=== PATIENT | male | born 1990 | race Caucasian/White ===

== ENCOUNTER 2021-03-15 13:24 | Emergency (ER) | payer OTHER, SELFPAY ==
[2021-03-15 13:47] VITALS: BP 142/92; PULSE 104; RESP 14; TEMP 36.7; O2SAT 100
[2021-03-15 15:25] VITALS: BP 136/72; PULSE 98; RESP 18; TEMP 36.7; O2SAT 99
[2021-03-15 18:27] VITALS: BP 142/78; PULSE 80; RESP 20; O2SAT 99
--- NOTE | 2021-03-15 18:28 | ED.GENADULT ---
HPI - General Adult General Chief complaint: Wound/Laceration Stated complaint: cyst Time Seen by Provider: 03/15/21 15:57 Source: patient Mode of arrival: ambulatory Limitations: no limitations History of Present Illness HPI narrative: Patient presents with chief complaint of abscess to the left inner thigh over the past 4 days. Patient reports that he felt some slight leaking while in the waiting room. He denies any fever chills or signs of systemic infection. Patient denies having diabetes but reports hypertension and anxiety. Related Data Allergies Allergy/AdvReac Type Severity Reaction Status Date / Time dicyclomine [From Bentyl] Allergy Nausea and Verified 03/15/21 15:30 Vomiting duloxetine [From Cymbalta] AdvReac Other Verified 03/15/21 15:29 Review of Systems Review of Systems: CONSTITUTIONAL: Denies fever, chills, or sweats. EYES: Denies visual changes, redness, or discharge. ENT: Denies rhinorrhea, congestion, sore throat, or otalgia. CARDIOVASCULAR: Denies chest pain, palpitations, or edema. RESPIRATORY: Denies cough or dyspnea. GASTROINTESTINAL: Denies abdominal pain, nausea, vomiting, or diarrhea. GENITOURINARY: Denies dysuria or hematuria. SKIN: Reports abscess denies rash or itching. MUSCULOSKELETAL: Denies back pain, joint pain, or myalgia. NEUROLOGIC: Denies headache, numbness, dizziness, or weakness. PSYCHIATRIC: Denies anxiety or depression. Exam Narrative: GENERAL: Well-appearing, well-nourished, and in no acute distress. HEAD: Normocephalic, atraumatic. EYES: PERRLA and EOMI. CHEST: Clear to auscultation. No respiratory distress. No wheezes rales or rhonchi HEART: Regular rate and rhythm. No murmur heard. Normal peripheral pulses. EXTREMITIES: Normal range of motion. No edema. SKIN: Approximately 3 cm in circumference abscess to the left inner thigh. Fluctuance palpable. warm, dry, no rash. NEURO: No focal deficits. Alert and oriented x3. PSYCH: Normal mood and affect. Course Vital Signs Vital signs: Vital Signs Temperature 98.1 F 03/15/21 13:47 Pulse Rate 104 H 03/15/21 13:47 Respiratory Rate 14 03/15/21 13:47 Blood Pressure 142/92 H 03/15/21 13:47 Pulse Oximetry 100 03/15/21 13:47 Temperature 98.1 F 03/15/21 15:25 Pulse Rate 98 03/15/21 15:25 Respiratory Rate 18 03/15/21 15:25 Blood Pressure 136/72 03/15/21 15:25 Pulse Oximetry 99 03/15/21 15:25 Procedures Abscess I/D lower extremity: Side (if applicable): left Local Anesthetic: lidocaine 1% Amount of anesthesia used (mL): 3 Irrigation: Yes Packing used?: iodoform I&D Results: Pus Abcess I&D Additional Comments: Wound care instructions given. Culture taken Medical Decision Making MDM Narrative Medical decision making narrative: Discussed the need to follow-up primary care in a few days for reevaluation Discussed wound care instructions and the need to remove packing in 48 hours. Patient tolerated procedure well. Discussed return ER instructions if any worsening signs of infection present. Patient and his verbalized understanding agreement and denies any other needs or concerns. Vital Signs Vital Signs: Vital Signs Temperature 98.1 F 03/15/21 13:47 Pulse Rate 104 H 03/15/21 13:47 Respiratory Rate 14 03/15/21 13:47 Blood Pressure 142/92 H 03/15/21 13:47 Pulse Oximetry 100 03/15/21 13:47 Temperature 98.1 F 03/15/21 15:25 Pulse Rate 98 03/15/21 15:25 Respiratory Rate 18 03/15/21 15:25 Blood Pressure 136/72 03/15/21 15:25 Pulse Oximetry 99 03/15/21 15:25 Discharge Plan Discharge Clinical Impression: Abscess Patient Disposition: Home, Self-Care Condition: Improved Instructions: Antibiotic Form, Abscess (ED) Additional Instructions: Take Bactrim as instructed. Remove all of packing in 48 hours. Tylenol or ibuprofen for discomfort. Take tramadol as directed as needed for breakthrough pain.
== END 2021-03-15 18:29 | disposition home or self-care (01) ==
PROVIDERS: Emergency Provider Emergency Medicine; PCP Family Medicine
DX: L02.416 Cutaneous abscess of left lower limb (principal)
CPT/HCPCS: 10061; 99283

== ENCOUNTER 2021-10-09 17:18 | Emergency (ER) | payer OTHER, SELFPAY ==
--- NOTE | ~2021-10-09 | CT_ITS ---
EXAMINATION: CT abdomen pelvis w con DATE: 10/09/2021 19:17 INDICATION: right lower abdominal pain TECHNIQUE: Computed tomography (CT) of the abdomen and pelvis was performed with 100 mL Omnipaque-300 intravenous contrast. Automated exposure control and iterative reconstruction technique were employe d. The dose-length product was 1582.80 mGy-cm. COMPARISON: None FINDINGS: Lower thorax: Unremarkable Liver: Normal. Biliary/Gallbladder: Gallbladder is normal. No bile duct dilation. Pancreas: No mass or duct dilation. Spleen: Normal. Adrenals:No mass. Kidneys: No mass, stone, or hydronephrosis. GI tract: No small or large bowel dilation. Normal appendix. Diverticulosis without diverticulitis. Mesentery/Peritoneum: No ascites, mass, or free air. Enlarged lymph nodes in the jose francisco hepatis. Retroperitoneum: No mass. Pelvis: Pelvic organs are within normal limits. Soft Tissues: Bilateral inguinal lymphadenopathy. Tissues and body wall unremarkable. Bones: No acute osseous finding. IMPRESSION: Jose Francisco hepatic and bilateral inguinal lymphadenopathy. No other acute abdominopelvic process detected. Reviewed, dictated and finalized at location K. IMPRESSION: Jose Francisco hepatic and bilateral inguinal lymphadenopathy. No other acute abdominope lvic process detected.
[2021-10-09 17:20] VITALS: BP 129/95; PULSE 76; RESP 18; TEMP 36.3; O2SAT 98
--- NOTE | 2021-10-09 17:40 | ED.ABDPAIN ---
HPI - Abdominal Pain General Chief Complaint: Abdominal Pain Stated Complaint: abd pain Time Seen by Provider: 10/09/21 17:25 Source: patient Mode of arrival: ambulatory Limitations: no limitations History of Present Illness HPI narrative: 31 year old male presents today with complaints of intermittent right lower abdominal pain that started on Monday. Patient states the pain waivers in intensity. Currently rating pain 3/10. Patient denies history of kidney stones, abdominal surgery. He does endorse chills and sweats, trouble urinating at times but denies fever, decreased oral intake, dysuria, urinary frequency or back pain. Last BM was prior to arrival and he states was normal for him. Related Data Allergies Allergy/AdvReac Type Severity Reaction Status Date / Time dicyclomine [From Bentyl] Allergy Nausea and Verified 10/09/21 17:35 Vomiting duloxetine [From Cymbalta] AdvReac Other Verified 10/09/21 17:35 Review of Systems Review of Systems: CONSTITUTIONAL: Denies fever, chills, or sweats. EYES: Denies visual changes, redness, or discharge. ENT: Denies rhinorrhea, congestion, sore throat, or otalgia. CARDIOVASCULAR: Denies chest pain, palpitations, or edema. RESPIRATORY: Denies cough or dyspnea. GASTROINTESTINAL: Intermittent right lower abdominal pain with nausea and vomiting at times. Pain rated 3/10 at current time. GENITOURINARY: Denies dysuria or hematuria. SKIN: Denies rash or itching. MUSCULOSKELETAL: Denies back pain, joint pain, or myalgia. NEUROLOGIC: Denies headache, numbness, dizziness, or weakness. PSYCHIATRIC: Denies anxiety or depression. [facility] Past Medical History Medical History (Updated 10/09/21 @ 19:41 by Sophie Duran APRN) Hypertension Exam Narrative: GENERAL: Well-appearing, well-nourished, and in no acute distress. HEAD: Normocephalic, atraumatic. EYES: PERRLA and EOMI. ENT: Nares clear, no rhinorrhea or epistaxis. Mucous membranes moist. NECK: Supple. No adenopathy or masses. No carotid bruits or JVD CHEST: Clear to auscultation. No respiratory distress. No wheezes rales or rhonchi HEART: Regular rate and rhythm. No murmur heard. Normal peripheral pulses. ABDOMEN: Soft, nontender, nondistended, normal active bowel sounds. EXTREMITIES: Normal range of motion. No edema. SKIN: Warm, dry, no rash. NEURO: No focal deficits. Alert and oriented x3. PSYCH: Normal mood and affect. Course Course Emergency Course: Patient pain tolerable throughout stay. Patient without nausea after Zofran. Labs and CT discussed with patient. Plan for discharge home with prescription of Zofran and follow-up with primary in 3 days. Patient aware of lymphadenopathy on CT and that he needs to make sure he follows up with primary so they can follow. All questions answered. Patient and significant other in agreement with plan of care. Vital Signs Vital signs: Vital Signs Temperature 36.3 C L 10/09/21 17:20 Pulse Rate 76 10/09/21 17:20 Respiratory Rate 18 10/09/21 17:20 Blood Pressure 129/95 H 10/09/21 17:20 Pulse Oximetry 98 10/09/21 17:20 Temperature 36.3 C L 10/09/21 17:20 Pulse Rate 66 10/09/21 20:04 Respiratory Rate 18 10/09/21 20:04 Blood Pressure 131/91 H 10/09/21 20:04 Pulse Oximetry 99 10/09/21 20:04 MDM - Abdominal Pain MDM Narrative Medical decision making narrative: HPI as noted. WBCs 11, hemoglobin 14.7, sodium 139, potassium 4.0, chloride 107 low GFR greater than 60, CT scan shows no appendicitis but does show Jose Francisco hepatic and bilateral inguinal lymphadenopathy. AST 18, ALT 16, alk phos 90. Low suspicion for appendix due to normal appendix on CT. No signs of diverticulitis, cholecystitis. Patient discharged home diagnosis abdominal pain. Differential Diagnosis Differential diagnosis: Likely abdominal pain, acute appendicitis, calculus of kidney, constipation and gastroenteritis Medical Records Attestation: I reviewed the patient's medical records
[2021-10-09 17:44] LABS: Basophils Absolute Auto 0.1 K/mm3 (0.0-0.1); Basophils Percent Auto 0.5 % (0.2-1.2); Eosinophils Absolute Auto 0.2 K/mm3 (0-0.3); Eosinophils Percent Auto 1.7 % (0-4.4); Hematocrit 46.8 % (42.0-52.0); Hemoglobin 14.7 g/dL (14.0-18.0); Immature Granulocyte Absolute 0.08 K/mm3 (0.00-0.031); Immature Granulocyte Percent A 0.7 % (0-0.5); Lymphocytes Percent Auto 20.1 % (18.3-44.2); Mean Corpuscular HGB Conc 31.4 g/dl (32-36); Mean Corpuscular Hemoglobin 28.9 pg (26-34); Mean Corpuscular Volume 92.1 fl (80-100); Mean Platelet Volume 9.3 fl (7.4-10.4); Monocytes Absolute Auto 0.7 K/mm3 (0.1-0.6); Monocytes Percent Auto 6.6 % (2.6-8.5); Neutrophils Absolute Auto 7.7 K/mm3 (1.3-6.7); Neutrophils Percent Auto 70.4 % (45.5-73.1); Platelet Count Result 273 k/mm3 (150-375); Red Blood Count 5.08 M/mm3 (4.6-6.20); Red Cell Distribution Width 13.6 % (11.5-14.5)
[2021-10-09 17:45] LABS: Add Urine Microscopic? NO; Appearance Urine Clear (Clear); Bilirubin Urine Negative (Negative); Blood Urine Negative (Negative); Color Urine Yellow (Yellow); Glucose Urine UA Negative (Negative); Ketones Urine Negative (Negative); Leukocyte Esterase Ur Negative LEU/UL (Negative); Nitrate Urine Negative (Negative); Protein Urine Negative (Negative); Specific Grav Ur 1.025 (1.001-1.035); Urobilinogen Urine 0.2 mg/dL (<2.0)
[2021-10-09] MEDS: ONDANSETRON INJ 4 MG/2 ML VIAL IV PUSH (17:48)
[2021-10-09] MEDS: SODIUM CHLORIDE 0.9% IV 1,000 ML 999 ML IV CONT (17:48)
[2021-10-09 17:56] LABS: Alanine Aminotransferase 16 U/L (6-50); Albumin Level 4.3 g/dL (3.5-5.1); Alkaline Phosphatase 90 U/L (38-126); Anion Gap 7 mmol/L (8-16); Aspartate Amino Transferase 18 U/L (17-59); Bilirubin,Total 0.5 mg/dL (0.2-1.3); Blood Urea Nitrogen 9 mg/dL (9-20); Calcium 8.7 mg/dL (8.4-10.2); Carbon Dioxide 25 mmol/L (22-30); Chloride 107 mmol/L (98-107); Estimated CRCL calculation 152 ml/min; Estimated Glomerular Filt Rate > 60; Glucose 105 mg/dL (65-110); Lipase 65 U/L (23-300); Sodium 139 mmol/L (137-145)
--- NOTE | 2021-10-09 19:16 | PC.NURSE ---
Assuming care of pt.
[2021-10-09 19:22] VITALS: BP 134/92; PULSE 75; RESP 18; O2SAT 99
[2021-10-09 20:04] VITALS: BP 131/91; PULSE 66; RESP 18; O2SAT 99
== END 2021-10-09 20:07 | disposition home or self-care (01) ==
PROVIDERS: Emergency Medicine; Emergency Provider Nurse Practitioner Family; PCP Family Medicine
DX: R10.31 Right lower quadrant pain (principal); I10 Essential (primary) hypertension
CPT/HCPCS: 36415; 74177; 80053; 81003; 83690; 85025; 96361; 96374; 99284; J2405; J7030; Q9967

== ENCOUNTER 2022-07-16 22:26 | Emergency (ER) | payer OTHER, SELFPAY ==
--- NOTE | ~2022-07-16 | CT_ITS ---
EXAMINATION: CT abdomen pelvis w con DATE: 07/17/2022 01:53 INDICATION: Right upper and lower quadrant pain. TECHNIQUE: Computed tomography (CT) of the abdomen and pelvis was performed with 100 cc Omnipaque 350 intravenous contrast. The dose-length product was 1583.31 mGy-cm. Automated exposure control and ite rative reconstruction technique were employed. COMPARISON: CT dated 10/09/2021. FINDINGS: Lung bases are unremarkable. Heart size normal. No significant pleural or pericardial effus ion. The liver, spleen, pancreas, adrenal glands and kidneys are unremarkable. Gallbladder is present . Colonic diverticulosis without evidence for diverticulitis. Mild thickening of the distal colon and rectum, most likely due to underdistention, although mild colitis not excluded. No significant vascu lar abnormality. Mildly prominent lymph nodes of the chiquita hepatis and inguinal locations are unchang ed, likely reactive. Gallbladder is present without significant surrounding inflammation. Normal appe ndix. IMPRESSION: 1. Mild thickening of the distal colon and rectum, most likely due to underdistention, although mild colitis not excluded. Reviewed, dictated and finalized at location A. LER HAND IMPRESSION: 1. Mild thickening of the distal colon and rectum, most likely due to underdist ention, although mild colitis not excluded.
[2022-07-16 22:28] VITALS: BP 144/95; PULSE 106; RESP 18; TEMP 36.4; O2SAT 100
[2022-07-16 22:48] LABS: Basophils Absolute Auto 0.1 K/mm3 (0.0-0.1); Basophils Percent Auto 0.6 % (0.2-1.2); Eosinophils Absolute Auto 0.1 K/mm3 (0-0.3); Eosinophils Percent Auto 0.4 % (0-4.4); Hematocrit 49.7 % (42.0-52.0); Hemoglobin 16.1 g/dL (14.0-18.0); Immature Granulocyte Absolute 0.13 K/mm3 (0.00-0.031); Immature Granulocyte Percent A 1.1 % (0-0.5); Lymphocytes Absolute Auto 1.93 K/mm3 (0.9-3.2); Lymphocytes Percent Auto 15.7 % (18.3-44.2); Mean Corpuscular HGB Conc 32.4 g/dl (32-36); Mean Corpuscular Volume 92.7 fl (80-100); Mean Platelet Volume 8.8 fl (7.4-10.4); Monocytes Absolute Auto 0.6 K/mm3 (0.1-0.6); Monocytes Percent Auto 4.7 % (2.6-8.5); Neutrophils Absolute Auto 9.6 K/mm3 (1.3-6.7); Neutrophils Percent Auto 77.5 % (45.5-73.1); Platelet Count Result 278 k/mm3 (150-375); Red Blood Count 5.36 M/mm3 (4.6-6.20); Red Cell Distribution Width 13.5 % (11.5-14.5); White Blood Count 12.3 K/mm3 (4.5-10.0)
[2022-07-16 22:53] LABS: Appearance Urine Slightly Cloudy (Clear); Bilirubin Urine Negative (Negative); Blood Urine Negative (Negative); Color Urine Yellow (Yellow); Glucose Urine UA Negative (Negative); Ketones Urine Negative (Negative); Leukocyte Esterase Ur Negative LEU/UL (Negative); Nitrate Urine Negative (Negative); Protein Urine Negative (Negative); Specific Grav Ur >= 1.030 (1.001-1.035); Urobilinogen Urine 0.2 mg/dL (<2.0); pH Urine 5.5 (5.0-9.0)
[2022-07-16 22:59] LABS: Alanine Aminotransferase 23 U/L (6-50); Albumin Level 4.8 g/dL (3.5-5.1); Alkaline Phosphatase 88 U/L (38-126); Anion Gap 8 mmol/L (8-16); Aspartate Amino Transferase 21 U/L (17-59); Bilirubin,Total 0.5 mg/dL (0.2-1.3); Blood Urea Nitrogen 13 mg/dL (9-20); Carbon Dioxide 28 mmol/L (22-30); Chloride 104 mmol/L (98-107); Estimated CRCL calculation 129 ml/min; Estimated Glomerular Filt Rate > 60; Glucose 104 mg/dL (65-110); Lipase 37 U/L (23-300); Potassium 4.4 mmol/L (3.4-5.0); Sodium 140 mmol/L (137-145)
[2022-07-16 23:17] LABS: Mucus Urine Moderate /lpf; WBC Urine 0-3 /hpf
[2022-07-16 23:19] LABS: Add Urine Microscopic? YES
[2022-07-16 23:52] VITALS: O2SAT 100
[2022-07-16 23:53] VITALS: BP 132/93; PULSE 94; RESP 18; O2SAT 100
[2022-07-17] VITALS: O2SAT 98
[2022-07-17 00:15] VITALS: O2SAT 99
[2022-07-17] MEDS: SODIUM CHLORIDE 0.9% IV 1,000 ML 999 ML IV CONT ×2 (01:00→01:01)
[2022-07-17] MEDS: ONDANSETRON INJ 4 MG/2 ML VIAL IV PUSH (01:01)
--- NOTE | 2022-07-17 01:36 | ED.GENADULT ---
HPI - General Adult General Chief complaint: Abdominal Pain Stated complaint: N/V, recent tooth extraction,Right abd pain Time Seen by Provider: 07/16/22 23:52 History of Present Illness HPI narrative: This is a 32-year-old male presenting ED with a chief complaint of abdominal pain. Patient said that when he went to work [place] at 9:00 p.m. he started to have a stabbing pain in his right lower quadrant. He is nonradiating, 4 out 10 intensity and comes and goes. He has never explained variance pain like this before, is worse with movement and there are no alleviating factors. It is associated with nausea and vomiting. He has not had a bowel movement yet. He denies fever, chills, chest pain difficulty breathing urinary symptoms. Related Data Allergies Allergy/AdvReac Type Severity Reaction Status Date / Time dicyclomine [From Bentyl] Allergy Nausea and Verified 10/09/21 17:35 Vomiting duloxetine [From Cymbalta] AdvReac Other Verified 10/09/21 17:35 PMFSH Past Medical History Medical History Anxiety Bipolar disorder HTN (hypertension) Hypertension Social History Social History Social History: patient drinks alcohol occasionally, denies use of drugs or tobacco Exam Narrative: APPEARANCE: No apparent distress. Head: atraumatic. EYES: EOMI, NOSE: Atraumatic NECK: Trachea midline RESPIRATORY: No increased rate of breathing CARDIOVASCULAR: RRR, ABDOMINAL: abdomen is obese, tender in the right lower quadrant with voluntary guarding. No CVA tenderness MUSCULOSKELETAl: No obvious deformities NEURO: Alert. Moving 4/4 extremities SKIN:: Warm, dry. Normal color PSYCHIATRIC: Normal affect Course Vital Signs Vital signs: Vital Signs Temperature 97.6 F 07/16/22 22:28 Pulse Rate 106 H 07/16/22 22:28 Respiratory Rate 18 07/16/22 22:28 Blood Pressure 144/95 H 07/16/22 22:28 Pulse Oximetry 100 07/16/22 22:28 Oxygen Delivery Room Air 07/16/22 22:28 Temperature 97.6 F 07/16/22 22:28 Pulse Rate 94 07/16/22 23:53 Respiratory Rate 18 07/16/22 23:53 Blood Pressure 132/93 H 07/16/22 23:53 Pulse Oximetry 99 07/17/22 00:15 Oxygen Delivery Room Air 07/16/22 22:28 Medical Decision Making [facility] Narrative Medical decision making narrative: -Presentation: 32-year-old male presenting with right lower quadrant abdominal pain. 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 Metabolic panel was within normal limits. Lipase was normal. Urine was not indicative infection. CT abdomen pelvis showed no evidence of appendicitis, no gallstones and no renal calculi or hydronephrosis. It did note some thickening of the sigmoid colon and rectum although this is on the opposite side from where the patient's pain is. Dx tests considered but not ordered: None -Procedures: none -Interventions: 2 L normal saline, 4 mg Zofran, -Shared decision making / Disposition: upon re-evaluation the patient's vital signs have normalized. His pain is improved. I did tell the patient that presented so quickly after his pain started that it is possibility is an early appendicitis and that it would not be visible on CT yet. return precautions given. -RX Motrin, Tylenol Zofran Vital Signs Vital Signs: Vital Signs Temperature 97.6 F 07/16/22 22:28 Pulse Rate 106 H 07/16/22 22:28 Respiratory Rate 18 07/16/22 22:28 Blood Pressure 144/95 H 07/16/22 22:28 Pulse Oximetry 100 07/16/22 22:28 O
[2022-07-17 04:05] VITALS: BP 131/101; PULSE 97; RESP 18; TEMP 36.6; O2SAT 99
--- NOTE | 2022-07-17 04:05 | PC.NURSE ---
Updated pt on plan of care, NAD, respirations even and unlabored. All needs addressed, no question at this time.
== END 2022-07-17 04:41 | disposition home or self-care (01) ==
PROVIDERS: Emergency Provider Emergency Medicine; PCP Family Medicine
DX: R10.31 Right lower quadrant pain (principal); I10 Essential (primary) hypertension
CPT/HCPCS: 36415; 74177; 80053; 81001; 83690; 85025; 96361; 96374; 99284; J2405; J7030; Q9967